=== PATIENT | female | born 2000 | race African-American/Black ===

== ENCOUNTER → 2024-01-12 11:39 | Outpatient (CLI) | payer OTHER, SELFPAY ==
--- NOTE | 2024-01-12 11:44 | DI.RAD.S_ITS ---
PROCEDURE: XR KNEE LT 3V INDICATIONS: ARTHRITIS TECHNIQUE: 3 views of the knee were acquired. COMPARISON: None. FINDINGS: Bones: No fractures or dislocations. No suspicious bony lesions. Soft tissues: No joint effusion. No suspicious soft tissue calcifications. IMPRESSION: No significant osseous abnormality. Dictated by: William Beckman M.D. on 01/12/2024 at 16:29 Approved by: William Beckman M.D. on 01/12/2024 at 16:30
== END ==
PROVIDERS: PCP Nurse Practitioner Family; Referring Provider Chiropractor; Visit Provider Chiropractor
DX: M13.80 Other specified arthritis, unspecified site (principal)
CPT/HCPCS: 73562